=== PATIENT | male | born 1990 | race Caucasian/White ===

== ENCOUNTER 2023-09-04 22:46 | Emergency (ER) | payer BC, SELFPAY ==
[2023-09-04 22:50] VITALS: BP 128/75; PULSE 72; RESP 16; TEMP 36.9; O2SAT 100
--- NOTE | 2023-09-04 23:10 | ED.GENADULT ---
HPI - General Adult General Chief complaint: Wound/Laceration Stated complaint: laceration Time Seen by Provider: 09/04/23 23:02 History of Present Illness HPI narrative: Patient is a 33-year-old gentleman who presents emergency department with chief complaint of abrasion to nose. Patient reports that his cat scratched him across the nose and also scratched parts of his face. Patient reports his tetanus is up-to-date reports the bleeding is controlled the patient states he is worried about the cosmesis of the the scratch Related Data Allergies Allergy/AdvReac Type Severity Reaction Status Date / Time No Known Allergies Allergy Verified 09/04/23 22:58 Review of Systems Review of Systems: A 10 system review of systems was completed on the patient and is negative except for what is stated in the HPI. Nursing and ancillary documentation was reviewed. Exam Narrative: GENERAL: Well-appearing, well-nourished, and in no acute distress. HEAD: Normocephalic, superficial abrasion to the nose small superficial abrasion to the left cheek. EYES: PERRLA and EOMI. ENT: Nares clear, no rhinorrhea or epistaxis. Mucous membranes moist. NECK: Supple. CHEST: Clear to auscultation. No respiratory distress. HEART: Regular rate and rhythm. No murmur heard. Normal peripheral pulses. ABDOMEN: Soft, nontender, nondistended, normal active bowel sounds. EXTREMITIES: Normal range of motion. No edema. SKIN: Warm, dry, no rash. NEURO: No focal deficits. Alert and oriented x3. PSYCH: Normal mood and affect. Course Vital Signs Vital signs: Vital Signs Temperature 36.9 C 09/04/23 22:50 Pulse Rate 72 09/04/23 22:50 Respiratory Rate 16 09/04/23 22:50 Blood Pressure 128/75 09/04/23 22:50 Pulse Oximetry 100 09/04/23 22:50 Oxygen Delivery Room Air 09/04/23 22:50 Temperature 36.9 C 09/04/23 22:50 Pulse Rate 72 09/04/23 22:50 Respiratory Rate 16 09/04/23 22:50 Blood Pressure 128/75 09/04/23 22:50 Pulse Oximetry 100 09/04/23 22:50 Oxygen Delivery Room Air 09/04/23 22:50 Medical Decision Making [facility] Narrative Medical decision making narrative: Differential diagnosis includes laceration requiring repair the superficial abrasion, feline bite Tetanus is up-to-date the patient was started on Augmentin the laceration does not require repair Vital Signs Vital Signs: Vital Signs Temperature 36.9 C 09/04/23 22:50 Pulse Rate 72 09/04/23 22:50 Respiratory Rate 16 09/04/23 22:50 Blood Pressure 128/75 09/04/23 22:50 Pulse Oximetry 100 09/04/23 22:50 Oxygen Delivery Room Air 09/04/23 22:50 Temperature 36.9 C 09/04/23 22:50 Pulse Rate 72 09/04/23 22:50 Respiratory Rate 16 09/04/23 22:50 Blood Pressure 128/75 09/04/23 22:50 Pulse Oximetry 100 09/04/23 22:50 Oxygen Delivery Room Air 09/04/23 22:50 Discharge Plan Discharge Clinical Impression: Cat scratch of face Qualifiers: Encounter type: initial encounter Qualified Code(s): S00.81XA - Abrasion of other part of head, initial encounter Patient Disposition: Home, Self-Care Condition: Stable Instructions: Antibiotic Form, Abrasion (ED) Prescriptions: New amoxicillin-pot clavulanate 875-125 mg tablet 1 tablet PO Q12H 10 Days Qty: 20 0RF Follow-up/Referrals: Stephanie Lincoln MD [Physician] - UNKNOWN,DOCTOR [Primary Care Provider] - Time of Disposition: 23:29
[2023-09-04] MEDS: AMOXICILLIN/CLAVULANATE K 875-125 MG TAB 1 TABLET PO (23:13)
== END 2023-09-04 23:41 | disposition home or self-care (01) ==
PROVIDERS: Emergency Provider Emergency Medicine
DX: S00.31XA Abrasion of nose, initial encounter (principal); S00.81XA Abrasion of other part of head, initial encounter; W55.03XA Scratched by cat, initial encounter
CPT/HCPCS: 99283; A9270